=== PATIENT | female | born 1965 | race Hispanic/Latino ===

== ENCOUNTER 2016-06-13 20:36 | Emergency (ER) | payer OTHER ==
[~2016-06-13] VITALS: Ht 144.8 cm; Wt 67.1 kg
[2016-06-13 21:39] LABS: EOSINOPHIL (%) 0.2 % (0-5); HEMATOCRIT 41.7 % (36.0-46.0); IMMATURE GRANULOCYTE (%) 0.3 % (0.0-0.7); INSTRUMENT ABS NEUTROPHIL CT 12.3 K/uL; LYMPHOCYTE COUNT 1.4 K/uL (1.0-2.8); MCH 31.2 PG (29.0-34.0); MCV 89.1 FL (83-99); MEAN PLAT.VOLUME 11.3 uM^3 (9.5-12.4); MONOCYTE (%) 4.4 % (3-12); MONOCYTE COUNT 0.6 K/uL (0-0.8); NEUTROPHIL (%) 85.2 % (45-76); NEUTROPHIL COUNT 12.3 K/uL (1.8-6.4); PLATELET COUNT 235 K/uL (156-360); RBC DIS.WIDTH-SD 38.7 % (39-53); RED BLOOD COUNT 4.68 M/uL (3.80-5.20); WHITE BLOOD COUNT 14.4 K/uL (4.1-10.2)
[2016-06-13 21:41] LABS: ADD MIUA? NO; BILIRUBIN NEGATIVE; BLOOD NEGATIVE; COLOR YELLOW ((YELLOW)); GLUCOSE (STRIP) NEGATIVE; KETONES NEGATIVE; LEUKOCYTES NEGATIVE; NITRITE NEGATIVE; PROTEIN (STRIP) NEGATIVE; SPECIFIC GRAVITY 1.012 (1.000-1.030); UROBILINOGEN 0.2 MG/DL (0.2-1.0)
[2016-06-13 21:46] LABS: CHLORIDE 107 mEq/L (99-109); POTASSIUM 3.5 mEq/L (3.7-5.4); SODIUM 139 mEq/L (136-147)
[2016-06-13 21:49] LABS: GLUCOSE 119 mg/dL (70-99)
[2016-06-13 21:50] LABS: ANION GAP 10 MEQ/L (2-14); TOTAL BILIRUBIN 0.3 mg/dL (0.0-1.0)
[2016-06-13 21:52] LABS: ALKALINE PHOSPHATASE 64 IU/L (3-129); GFR ESTIMATE (CALCULATED) > 59 mL/min/
[2016-06-13 21:53] LABS: UREA NITROGEN (BUN) 12 mg/dL (9-23)
[2016-06-13 21:56] LABS: LIPASE 7 U/L (1.0-51.0)
[2016-06-13 22:04] LABS: QUANTITATIVE HCG < 4.0 MIU/ML
[2016-06-14] MEDS ORDERED: COLACE100 MG PO (00:04)
[2016-06-14] MEDS ORDERED: MIRALAX17 GM PO (00:04)
[2016-06-14 00:22] VITALS: BP 132/67
== END 2016-06-14 00:23 | disposition home or self-care (01) ==
LOC: RME 20:36 → EME 20:36 → RME 06-14 00:23
PROVIDERS: Physician Assistant
DX: K59.00 Constipation, unspecified (principal)
CPT/HCPCS: 74176; 80053; 81003; 83690; 84702; 85025; 99281; 99285; J1885; J2405; J7040

== ENCOUNTER → 2017-06-02 | Outpatient (CLI) | payer BC ==
[~2017-06-02] MED LIST: ACID REDUCER75 MG PO; ALEVE220 MG PO; CIPRO500 MG PO; COLACE100 MG PO; LIPITOR20 MG PO; METHOCARBAMOL500 MG PO; MIRALAX17 GM PO; MOBIC7.5 MG PO
== END | disposition home or self-care (01) ==
LOC: CDC 14:59
DX: Z01.810 Encounter for preprocedural cardiovascular examination (principal)
CPT/HCPCS: 93000

== ENCOUNTER 2017-06-06 07:08 | Day surgery (SDC) | payer BC ==
[~2017-06-06] VITALS: Ht 144.8 cm; Wt 70.2 kg
[~2017-06-06 07:08] MED LIST changes: -METHOCARBAMOL500 MG PO
[2017-06-06] MEDS ORDERED: METHOCARBAMOL500 MG PO (07:34)
[2017-06-06 07:46] VITALS: BP 104/59
[2017-06-06 10:48] VITALS: BP 96/54
[2017-06-06 11:44] VITALS: BP 109/66
== END 2017-06-06 11:49 | disposition home or self-care (01) ==
LOC: SDC 07:08
DX: N84.0 Polyp of corpus uteri (principal); D25.1 Intramural leiomyoma of uterus; N92.1 Excessive and frequent menstruation with irregular cycle; K21.9 Gastro-esophageal reflux disease without esophagitis; E78.5 Hyperlipidemia, unspecified
CPT/HCPCS: 88305; J0131; J1100; J1170; J2250; J2405; J3010